=== PATIENT | male | born 1975 | race Caucasian/White ===

== ENCOUNTER 2021-04-17 21:16 | Emergency (ER) | payer OTHER ==
--- NOTE | 2021-04-17 22:27 | ED ---
General Adult HPI - General Chief complaint: Alcohol Stated complaint: Fall, Head Injury Time Seen by Provider: 04/17/21 21:24 Source: family, EMS Mode of arrival: EMS Limitations: no limitations - History of Present Illness Initial comments: This 46-year-old male with a past medical history of daily alcohol use presents to the emergency department after a witnessed fall at home. When patient asked why he is here he stated "I guess I had a few drinks but I don't know why I'm here." Witnesses at patients house state he is drunk and that he fell down 5-6 stairs this evening and had loss of consciousness for around 10-15 seconds. Patient states he does not remember falling and currently has no pain or complaints. Patient states he has used alcohol daily for years. He denies taking blood thinners. She states he lives at home with his children and sister. Patient states he does drink beer daily and is not sure how many beers he has had today. He denies any history of head trauma. Patient denies any chest pain, shortness of breath, abdominal pain, nausea, vomiting, headache, change in bowel or bladder, change in appetite, double/blurred or changed vision. - Related Data Home Medications Medication Instructions Recorded Confirmed No Known Home Medications 04/17/21 04/17/21 Allergies Allergy/AdvReac Type Severity Reaction Status Date / Time No Known Allergies Allergy Verified 04/17/21 22:02 Review of Systems ROS Statement: Those systems with pertinent positive or pertinent negative responses have been documented in the HPI. ROS Other: All systems not noted in ROS Statement are negative. Past Medical History Additional Past Medical History / Comment(s): alcoholism History of Any Multi-Drug Resistant Organisms: None Reported Past Surgical History: Bariatric Surgery Additional Past Surgical History / Comment(s): gastric bybass Past Anesthesia/Blood Transfusion Reactions: No Reported Reaction Past Psychological History: Anxiety Smoking Status: Current every day smoker Past Alcohol Use History: Abuse, Daily Past Drug Use History: None Reported General Exam Limitations: no limitations General appearance: alert, in no apparent distress, appears intoxicated Head exam: Present: atraumatic, normocephalic, normal inspection Eye exam: Present: PERRL, EOMI Pupils: Present: normal accommodation ENT exam: Present: mucous membranes moist, other (missing some teeth) Neck exam: Present: full ROM. Absent: tenderness, meningismus, lymphadenopathy Respiratory exam: Present: normal lung sounds bilaterally. Absent: respiratory distress, wheezes, rales, rhonchi, stridor Cardiovascular Exam: Present: regular rate, normal rhythm, normal heart sounds. Absent: systolic murmur, diastolic murmur, rubs, gallop, clicks GI/Abdominal exam: Present: soft, normal bowel sounds. Absent: distended, tenderness, guarding, rebound, rigid Extremities exam: Present: full ROM. Absent: tenderness, calf tenderness Back exam: Present: full ROM. Absent: tenderness, CVA tenderness (R), CVA tenderness (L), paraspinal tenderness, vertebral tenderness Neurological exam: Present: alert, oriented X3, CN II-XII intact, other (Patient was able to perform [id number], 6 cardinal signs of days and rapid alternating movements) Psychiatric exam: Present: normal affect, normal mood Skin exam: Present: warm, dry, intact, normal color. Absent: rash Course Vital Signs 04/17/21 04/17/21 21:22 23:06 Temperature 98.1 F 98 F Pulse Rate 82 87 Respiratory 18 22 Rate Blood Pressure 171/94 137/78 O2 Sat by Pulse 99 97 Oximetry Medical Decision Making - Medical Decision Making This 46-year-old male past medical history of daily alcohol use presents to the emergency department after a witnessed fall down 5-6 stairs by his family members. Due to alcohol intoxication, patient does not remember the fall. Physical exam unremarkable. Vitals unremarkable. CT brain and neck showed no acute abnormalities. We requested patient to stay for observation, however patient refused and stated he wanted to go home now. Strict return precautions were discussed with patient. Case discussed with my attending, . Disposition Clinical Impression: Alcohol intoxication, Fall Disposition: HOME SELF-CARE Condition: Stable Instructions (If sedation given, give patient instructions): Alcohol Intoxication (ED) Is patient prescribed a controlled substance at d/c from ED?: No Referrals: Quan Melchor DO [Primary Care Provider] - 1-2 days Decision Time: 23:23
--- NOTE | 2021-04-17 22:57 | CT ---
EXAMINATION TYPE: CT brain cspine wo con DATE OF EXAM: 04/17/2021 COMPARISON: None HISTORY: fall CT DLP: 1371.9 mGycm Automated exposure control for dose reduction was used. Images of the brain and cervical spine without contrast. Ventricles have normal size. There is no mass effect or midline shift. There is no sign of intracrani al hemorrhage. The calvarium is intact. There is some mild mucosal thickening in the anterior ethmoid air cells. The cervical vertebra have fairly normal spacing and alignment. Posterior elements are intact. Facet joints are intact. Prevertebral soft tissues are intact. IMPRESSION: Negative CT scan of the cervical spine. Negative CT scan of the brain. Mild ethmoid and maxillary sinusitis.
[2021-04-17 23:14] VITALS: BP 137/78; PULSE 87; RESP 22; TEMP 98
== END 2021-04-17 23:14 | disposition home or self-care (01) ==
LOC: EC 21:16
DX: F10.129 Alcohol abuse with intoxication, unspecified (principal); F41.9 Anxiety disorder, unspecified; F17.200 Nicotine dependence, unspecified, uncomplicated; Z98.84 Bariatric surgery status; Y90.9 Presence of alcohol in blood, level not specified
CPT/HCPCS: 70450; 72125; 99284